=== PATIENT | male | born 1990 | race African-American/Black ===

== ENCOUNTER 2016-07-11 15:29 | Emergency (ER) | payer MEDICAID ==
[~2016-07-11] VITALS: Ht 160 cm; Wt 72.3 kg
[~2016-07-11 15:29] MED LIST: CHLO.12%30 SSP; IBUP800T23 PO; PENI500T PO; PERC5TAB12 PO; ZOFR4TAB3 SL
[2016-07-11 15:30] VITALS: BP 116/74; PULSE 72; RESP 15; TEMP 97.8; O2SAT 100
--- NOTE | 2016-07-11 15:51 | PD ---
HPI Chief Complaint: Back/ Neck Pain or Injury Time Seen by Provider: 15:50 Travel History International Travel<30 days: No Contact w/Intl Traveler<30days: No Traveled to known affect area: No History of Present Illness HPI 26-year-old male presents to the emergency department for evaluation of right upper back pain for the past 3 days. States that the pain was slow onset and has been worsening over the past several days. Pain is aggravated with movement of his right arm and shoulder. Alleviated with lying flat. The patient states that he does perform long-term work and does heavy lifting at work, states that he did do some heavy lifting the day that this pain began. States he has taken ibuprofen 400 mg with minimal improvement of symptoms. Denies any fever, chills, nausea, vomiting, chest pain, shortness of breath, numbness or tingling, weakness. No other complaints. PFSH Past Medical History Medical History: Denies Significant Hx Past Surgical History Abdominal Surgery: Yes (herinia repair ) Social History Alcohol Use: Yes (ONE BEER PER DAY) Tobacco Use: Yes (1/2 A PACK PER DAY) Substance Use: No Allergies-Medications (Allergen,Severity, Reaction): Coded Allergies: Codeine (Verified Allergy, Severe, NECK SPASMS, 07/11/16) Reported Meds & Prescriptions Reported Meds & Active Scripts Active Naproxen 500 Mg Tab 500 Mg PO BID 7 Days Robaxin (Methocarbamol) 750 Mg Tab 750 Mg PO QID 7 Days Zofran Odt (Ondansetron Odt) 4 Mg Tab 4 Mg SL Q6HR PRN Percocet 5-325 mg (Oxycodone/Acetaminophen) 1 Tab 1 Tab PO Q8HR PRN Ibuprofen 800 Mg Tab 800 Mg PO Q8 PRN Peridex Oral R0.12 % 0.12 % Maria Del Carmen 15 Ml SSP Q6HR 5 Days Pen Vk (Penicillin V Potassium) 500 Mg Tab 500 Mg PO Q6 7 Days Review of Systems Except as stated in HPI: all other systems reviewed are Neg Physical Exam Narrative GENERAL: Well-nourished and well-developed pleasant patient in no acute distress who is nontoxic appearing. SKIN: Warm and dry. HEAD: Normocephalic and atraumatic. EYES: No injection, drainage, or hyphema noted. PERRLA. EOMI. ENT: No nasal drainage noted. Oropharynx is clear. NECK: Supple and the trachea is midline. CARDIOVASCULAR: Regular rate and rhythm. RESPIRATORY: Breath sounds are equal bilaterally with no accessory muscle use, wheezing, rhonchi, or crackles. MUSCULOSKELETAL: No obvious deformities, swelling, cyanosis, or ecchymosis is present throughout the upper and lower extremities. Patient has full range of motion without any signs of neurovascular compromise. Strength 5/5 upper and lower extremities equal bilaterally. BACK: Right thoracic paraspinal muscle tenderness to palpation and right scapular pain. No obvious deformities, midline bony point tenderness, or crepitus noted throughout the thoracic and lumbar vertebrae. NEUROLOGICAL: Awake, alert, and oriented. Normal speech and gait. Cranial nerves are grossly intact. Data Data Last Documented VS Vital Signs Date Time Temp Pulse Resp B/P Pulse Ox O2 Delivery O2 Flow Rate FiO2 07/11/16 15:30 97.8 72 15 116/74 100 Orders Cyclobenzaprine (Flexeril) (07/11/16 16:00) Naproxen (Naprosyn) (07/11/16 16:00) [facility] Medical Decision Making Medical Screen Exam Complete: Yes Emergency Medical Condition: Yes Differential Diagnosis Muscle strain versus muscle spasm versus discogenic pain Narrative Course 26-year-old male presents to the emergency department for evaluation of right upper back pain for 3 days. Patient is afebrile, vital signs are stable. No traumatic injury to his back. Pain is musculoskeletal in etiology. Patient is given Flexeril and naproxen here in the emergency department. He'll be discharged with Robaxin and naproxen. Advised follow-up with his PCP. Diagnosis Primary Impression: Acute thoracic back pain Qualified Code: M54.6 - Acute right-sided thoracic back pain Patient Instructions: Back Pain (ED), General Instructions, Muscle Spasm (ED) Additional Instructions: Apply ice or heat to help alleviate symptoms. Take medications as prescribed with food and a full glass of water. Do not take Robaxin with alcohol or while driving. Follow-up with your Primary Care Physician. Return to the ED for any acute worsening of symptoms. Med/Other Pt SpecificInfo: Prescription(s) given Scripts Naproxen 500 Mg [id number] Mg PO BID 7 Days Ref 0 Prov:Shorty Echevarria MD 07/11/16 Methocarbamol (Robaxin)750 Mg [id number] Mg PO QID 7 Days Ref 0 Prov:Shorty Echevarria MD 07/11/16 Disposition: 01 DISCHARGE HOME Condition: Stable Sada Paz Jul 11, 2016 15:51
[2016-07-11] MEDS ORDERED: ROBA750T PO (15:52)
[2016-07-11] MEDS ORDERED: NAPR500T PO (15:52)
[2016-07-11] MEDS ORDERED: NAPROXEN 500 MG TAB PO ONE (16:00)
[2016-07-11] MEDS ORDERED: CYCLOBENZAPRINE HCL 10 MG TAB PO ONE (16:00)
== END 2016-07-11 16:07 | disposition home or self-care (01) ==
LOC: NEPB 15:29
DX: M54.6 Pain in thoracic spine (principal); F17.210 Nicotine dependence, cigarettes, uncomplicated
CPT/HCPCS: 99283

== ENCOUNTER 2017-01-01 13:16 | Emergency (ER) | payer SELFPAY ==
[~2017-01-01] VITALS: Ht 175.3 cm; Wt 72.0 kg
[~2017-01-01 13:16] MED LIST changes: +NAPR500T PO; +ROBA750T PO
[2017-01-01 13:17] VITALS: BP 122/90; PULSE 65; RESP 15; TEMP 98.1; O2SAT 100
== END 2017-01-01 16:23 | disposition left against medical advice (07) ==
LOC: NED 13:16
DX: R10.9 Unspecified abdominal pain (principal); Z53.21 Procedure and treatment not carried out due to patient leaving prior to being seen by health care provider
CPT/HCPCS: 99281

== ENCOUNTER 2017-01-03 08:52 | Emergency (ER) | payer SELFPAY ==
[~2017-01-03] VITALS: Ht 165.1 cm; Wt 61.5 kg
[2017-01-03 08:53] VITALS: BP 141/97; PULSE 103; RESP 20; TEMP 98.9; O2SAT 99
--- NOTE | 2017-01-03 09:08 | PD ---
HPI Chief Complaint: GI Complaint Time Seen by Provider: 09:08 Travel History International Travel<30 days: No Contact w/Intl Traveler<30days: No Traveled to known affect area: No History of Present Illness HPI 26-year-old male came to the emergency room with history of vomiting and diarrhea since the of this month. Patient says that it had stopped but then started again last night. He has been unable to keep anything down. Vital signs were otherwise stable. Patient is otherwise a healthy person. He is also complaining of some vague abdominal pain. No aggravating or relieving factors identified. Stool is watery. No blood either in stool or vomitus. PFSH Past Medical History Narrative Medical List of his past medical, surgical, social and family history was reviewed from the nursing note. Past Surgical History Abdominal Surgery: Yes (herinia repair ) Social History Alcohol Use: No (ONE BEER PER DAY) Tobacco Use: Yes (1/2 A PACK PER DAY) Substance Use: No Allergies-Medications (Allergen,Severity, Reaction): Coded Allergies: Codeine (Verified Allergy, Severe, NECK SPASMS, 01/01/17) Comments List of his allergies reviewed from [facility]. Reported Meds & Prescriptions Reported Meds & Active Scripts Active Zofran Odt (Ondansetron Odt) 4 Mg Tab 4 Mg SL Q6HR PRN Naproxen 500 Mg Tab 500 Mg PO BID 7 Days Robaxin (Methocarbamol) 750 Mg Tab 750 Mg PO QID 7 Days Zofran Odt (Ondansetron Odt) 4 Mg Tab 4 Mg SL Q6HR PRN Percocet 5-325 mg (Oxycodone/Acetaminophen) 1 Tab 1 Tab PO Q8HR PRN Ibuprofen 800 Mg Tab 800 Mg PO Q8 PRN Peridex Oral Rinse (Chlorhexidine Gluconate) 0.12 % Maria Del Carmen 15 Ml SSP Q6HR 5 Days Pen Vk (Penicillin V Potassium) 500 Mg Tab 500 Mg PO Q6 7 Days Narrative Medication List of his home medications reviewed from the [facility]. Review of Systems Except as stated in HPI: all other systems reviewed are Neg Physical Exam Narrative GENERAL: Awake, alert, mild to SKIN: Focused skin assessment warm/dry. HEAD: Atraumatic. Normocephalic. EYES: Pupils equal and round. No scleral icterus. No injection or drainage. ENT: No nasal bleeding or discharge. Dry mucous membranes NECK: Trachea midline. No JVD. CARDIOVASCULAR: Regular rate and rhythm. No murmur appreciated. RESPIRATORY: No accessory muscle use. Clear to auscultation. Breath sounds equal bilaterally. GASTROINTESTINAL: Abdomen soft, non-tender, nondistended. Hepatic and splenic margins not palpable. MUSCULOSKELETAL: No obvious deformities. No clubbing. No cyanosis. No edema. NEUROLOGICAL: Awake and alert. No obvious cranial nerve deficits. Motor grossly within normal limits. Normal speech. PSYCHIATRIC: Appropriate mood and affect; insight and judgment normal. Data Data Last Documented VS Vital Signs Date Time Temp Pulse Resp B/P Pulse Ox O2 Delivery O2 Flow Rate FiO2 01/03/17 09:25 99 01/03/17 08:53 98.9 103 20 141/97 Room Air Orders Complete Blood Count With Diff (01/03/17 09:11) Comprehensive Metabolic Panel (01/03/17 09:11) Iv Access Insert/Monitor (01/03/17 09:11) Ecg Monitoring (01/03/17 09:11) Oximetry (01/03/17 09:11) Ondansetron Inj (Zofran Inj) (01/03/17 09:15) Sodium Chlor 0.9% 1000 Ml Inj (Ns 1000 M (01/03/17 09:11) Sodium Chloride 0.9% Flush (Ns Flush) (01/03/17 09:15) Labs Laboratory Tests Test 01/03/17 09:15 White Blood Count 8.7 TH/MM3 Red Blood Count 5.19 MIL/MM3 Hemoglobin 15.8 GM/DL Hematocrit 46.9 % Mean Corpuscular Volume 90.4 FL Mean Corpuscular Hemoglobin 30.5 PG Mean Corpuscular Hemoglobin 33.7 % Concent Red Cell Distribution Width 14.6 % Platelet Count 263 TH/MM3 Mean Platelet Volume 8.7 FL Neutrophils (%) (Auto) 47.1 % Lymphocytes (%) (Auto) 39.9 % Monocytes (%) (Auto) 10.7 % Eosinophils (%) (Auto) 1.5 % Basophils (%) (Auto) 0.8 % Neutrophils # (Auto) 4.1 TH/MM3 Lymphocytes # (Auto) 3.5 TH/MM3 Monocytes # (Auto) 0.9 TH/MM3 Eosinophils # (Auto) 0.1 TH/MM3 Basophils # (Auto) 0.1 TH/MM3 CBC Comment DIFF FINAL Differential Comment Sodium Level 136 MEQ/L Potassium Level 3.5 MEQ/L Chloride Level 103 MEQ/L Carbon Dioxide Level 24.7 MEQ/L Anion Gap 8 MEQ/L Blood Urea Nitrogen 6 MG/DL Creatinine 0.92 MG/DL Estimat Glomerular Filtration 120 ML/MIN Rate Random Glucose 84 MG/DL Calcium Level 9.2 MG/DL Total Bilirubin 0.7 MG/DL Aspartate Amino Transf 15 U/L (AST/SGOT) Alanine Aminotransferase 12 U/L (ALT/SGPT) Alkaline Phosphatase 153 U/L Total Protein 8.8 GM/DL Albumin 4.3 GM/DL MDM Medical Decision Making Medical Screen Exam Complete: Yes Emergency Medical Condition: Yes Medical Record Reviewed: Yes Differential Diagnosis Acute gastroenteritis, dehydration, electrolyte abnormality Narrative Course 10:40 AM blood test results are back and within acceptable limits. Patient was given 1 L IV fluid bolus and Zofran. He has not vomited since he's been here. I'm comfortable discharging him home. Procedures EKG Prior to Arrival: No Diagnosis Primary Impression: Acute gastroenteritis Referrals: Primary Care Physician Additional Instructions: Please return to the ER if the condition worsens or any other new concerns. Please take the medication as per the prescription direction. Try to keep herself hydrated. Follow up with her primary can couple days. Med/Other Pt SpecificInfo: Prescription(s) given Scripts Ondansetron Odt (Zofran Odt)4 Mg Tab4 Mg SL Q6HR PRN (Nausea/Vomiting) #10 TAB Ref 0 Prov:Adele Licea MD 01/03/17 Disposition: 01 DISCHARGE HOME Condition: Stable Adele Licea MD Jan 03, 2017 09:08
[2017-01-03] MEDS ORDERED: SODIUM CHLOR 0.9% 1000 ML INJ 1,000 ML IV SCH (09:11)
[2017-01-03] MEDS ORDERED: ONDANSETRON HCL 4 MG/2 ML VIAL IVP ONE (09:15)
[2017-01-03] MEDS ORDERED: SODIUM CHLORIDE 0.9% FLUSH 10 ML FLUSH IV FLUSH PRN (09:15)
[2017-01-03 09:25] VITALS: O2SAT 99
[2017-01-03 10:04] LABS: AUTOMATED NEUTROPHIL # 4.1 TH/MM3 (1.8-7.7); BASOPHIL # 0.1 TH/MM3 (0-0.2); BASOPHIL % 0.8 % (0.0-2.0); EOSINOPHIL # 0.1 TH/MM3 (0-0.4); EOSINOPHIL % 1.5 % (0.0-4.0); HEMATOCRIT 46.9 % (39.0-51.0); HEMO FLAGS DIFF FINAL; LYMPH % 39.9 % (9.0-44.0); LYMPHOCYTE # 3.5 TH/MM3 (1.0-4.8); MEAN CELL VOLUME 90.4 FL (80.0-100.0); MEAN CORPUSCULAR HEMOGLOBIN 30.5 PG (27.0-34.0); MEAN CORPUSCULAR HGB CONC 33.7 % (32.0-36.0); MONO % 10.7 % (0.0-8.0); NEUT % 47.1 % (16.0-70.0); PLATELET COUNT 263 TH/MM3 (150-450); RED BLOOD COUNT 5.19 MIL/MM3 (4.50-5.90); RED CELL DISTRIBUTION WIDTH 14.6 % (11.6-17.2); WHITE BLOOD COUNT 8.7 TH/MM3 (4.0-11.0)
[2017-01-03 10:31] LABS: ALT (GPT) 12 U/L (12-78); ANION GAP 8 MEQ/L (5-15); AST (GOT) 15 U/L (15-37); BICARBONATE 24.7 MEQ/L (21.0-32.0); BLOOD UREA NITROGEN 6 MG/DL (7-18); CHLORIDE 103 MEQ/L (98-107); GLOMERULAR FILTRATION RATE 120 ML/MIN (>89); POTASSIUM 3.5 MEQ/L (3.5-5.1); SODIUM (NA) 136 MEQ/L (136-145)
[2017-01-03 10:33] LABS: ALKALINE PHOSPHATASE 153 U/L (45-117); TOTAL BILIRUBIN ADULT 0.7 MG/DL (0.2-1.0)
[2017-01-03] MEDS ORDERED: ZOFR4TAB3 SL (10:42)
== END 2017-01-03 11:03 | disposition home or self-care (01) ==
LOC: NEPD 08:52
DX: K52.9 Noninfective gastroenteritis and colitis, unspecified (principal); F17.200 Nicotine dependence, unspecified, uncomplicated; Z79.899 Other long term (current) drug therapy; Z88.5 Allergy status to narcotic agent
CPT/HCPCS: 80053; 85025; 96361; 96374; 99284; J2405; J7030